=== PATIENT | female | born 1965 | race African-American/Black ===

== ENCOUNTER → 2017-08-06 | Outpatient (CLI) | payer OTHER ==
[~2017-08-06] VITALS: Ht 162.6 cm; Wt 81.6 kg
[~2017-08-06] MED LIST: ANASPAZ0.125 MG SUBLING; ANXIETY MED; CLONAZEPAM; CLONAZEPAM 1 MG1 M1 PO; CYMBALTA; CYMBALTA30 MG PO; DEXTROAMPHETAMIN5 M2 PO; ENOXAPARIN40 MG/0.4 SUBQ; FLAGYL500 MG PO; FLONASE; FLONASE 0.05%50 MCG NASAL; FOLIC ACID0.4 MG PO; HYDROCODON-ACE1 EACH PO; HYDROCODONE-AP1 EAC6 PO; IBUPROFEN 200200 M1 PO; MELOXICAM7.5 MG PO; METHOTREXATE; METHOTREXATE 22.5 MG PO; MOBIC7.5 MG PO; NORCO 5-325 TA1 EACH PO; NUVIGIL; NUVIGIL PO; OMEPRAZOLE 20 M20 M1 PO; OXYCODONE-ACET1 EACH PO; PEPCID AC20 M1 PO; POTASSIUM20 PO; PROZAC20 MG PO; RHEUMATREX2.5 MG PO; TAMSULOSIN HCL0.4 MG PO; VIT D; VITAMIN D2000 UNIT PO; VITAMIN D31000 UNI2 PO; WELLBUTRIN SR150 MG PO
--- NOTE | ~2017-08-06 | HPC ---
[facility] [address] [place] [address] PAIN MANAGEMENT CONSULTATION Name: GISELLE ANDERSON Room #: REG [facility] Indra#: [id number] Admission: 08/06/17 Attend Phys: lCaus March DO Discharge: Date of : 69 Report #: [id number] THIS REPORT FOR: //name// CC: Aleta March HISTORY OF PRESENT ILLNESS: The patient a very pleasant 52-year-old female seen in consultation at the request of Dr. Yasmani Barba for assistance with management of pain in neck, left shoulder and upper arm. The patient has paresthesia going into the middle 3 fingers. She notes symptoms are present for about 3 months. Denies specific antecedent trauma and overuse. She has tried nonsteroidal anti-inflammatory medications (ibuprofen) with some efficacy. Aspercreme and icy hot topical with some efficacy. She notes the pain is exacerbated when she is sleep, when she is recumbent and when she is in the right lateral decubitus position. She notes rhythmic, aching, gnawing, stabbing pain, rates anywhere from 6 to 9 on visual analog scale. She notes some subjective decreased left hand strength. Denies any antecedent trauma and overuse. REVIEW OF SYSTEMS: Complete review of systems attached to chart and gone over with the patient. She is and in fact I have treated her for quite some time. They are a delightful couple. She has a history of sarcoidosis that has been treated by Dr. Yasmani Barba for many years, currently on methotrexate and folic acid. History of some chronic anxiety, depression, takes Buproprion, Prozac and dextroamphetamine 5 mg four times daily. She takes rare hydrocodone for pain. She has had sinus surgery in the past, left tear duct surgery multiple times, carpal tunnel repair left wrist 2004. She has been disabled since 2004. Pain impact score is a 49/70. PHYSICAL EXAMINATION: Shows 5 feet 4, 180 pounds female, BMI is 30.9 kg per meter squared. Blood pressure is 125/78, pulse 83, respirations 16. Cranial nerves 2 through 12 are grossly intact. Pupils equal, reactive to light and accommodation. Extraocular muscles are intact. Cervical range of motion is modestly limited. Positive Lhermitte's with symptoms radiating into left side. Thyroid is modestly enlarged, no nodules are noted. Upper extremity strength shows slight decreased left triceps strength and left hand grasp with decreased opposition to the thumb and index, long and ring finger. Heart is regular rhythmical without murmur. Lungs clear to auscultation. Skin integument is intact. Abdomen is benign. Gait is tandem. Lower extremity strength is preserved. DIAGNOSTIC STUDIES: MRI of the cervical spine from 07/24/2017 notes reversal of normal cervical lordosis, circumferential annular disk bulge at C4-C5 with the right paracentral disk bulge at C5-C6 and neural foraminal narrowing. [address] [address] PAIN MANAGEMENT CONSULTATION Name: GISELLE ANDERSON Room #: REG [facility]#: [id number] Admission: 08/06/17 Attend Phys: Claus March DO Discharge: Date of : 69 Report #: [id number] ASSESSMENT: Symptomatic cervical radiculopathy clinical exam and history. RECOMMENDATION: 1. Continue nonsteroidal kyus-zyy-wwiishw anti-inflammatory agent, recommend Aleve (naproxen sodium) 220 mg twice daily. 2. cervical epidural injection under fluoroscopy today. 3. Follow up in 3 to 4 weeks to reevaluate. Thank you for allowing me to participate in this patient's care. I will keep you abreast of her progress. PROCEDURE: Cervical epidural steroid injection under fluoroscopy. PROCEDURE NOTE: After written and informed consent was obtained including risk of dural puncture, spinal cord trauma, paralysis and increased pain, the patient was taken to the fluoroscopy suite and placed in the prone position, with appropriate abdominal bolstering, neck was flexed, palms under the thighs. Skin was prepped with ChloraPrep. Sterile draping was applied. Skin wheal with 1% Xylocaine was raised. A 22-gauge 3-1/2 inch epidural Tuohy needle was placed via a midline approach at the C7-T1 interspace, advanced under biplanar fluoroscopy using continuous loss of resistance. With appropriate loss of resistance at the expected depth on lateral view, the glass loss of resistance syringe was disconnected. A low volume extension tubing was connected to the needle and a 5 mL syringe. Negative aspiration for cerebrospinal fluid or blood was noted. A 1 mL of Omnipaque was injected which showed spread within the epidural space on biplanar fluoroscopy. This was followed with 80 mg of triamcinolone plus 1 mL of 1.5% preservative Xylocaine. Needle was withdrawn to the interspinous ligament, 0.5 mL of Xylocaine was used to flush the needle. The needle was then completely withdrawn. The area was cleansed. Band-Aid was applied. The patient was allowed to move off the procedure table and ambulated to the recovery room, monitored for an appropriate period of time, discharged in good and stable condition. <ELECTRONICALLY SIGNED> By: Claus March DO 08/07/17 0731 [id number] Claus March DO /ludin
[2017-08-06 13:38] VITALS: BP 125/78
== END | disposition home or self-care (01) ==
LOC: PAIN 06:46
DX: M54.12 Radiculopathy, cervical region (principal); Z68.30 Body mass index [BMI] 30.0-30.9, adult; Z79.899 Other long term (current) drug therapy; D86.9 Sarcoidosis, unspecified; F41.9 Anxiety disorder, unspecified; F32.9 Major depressive disorder, single episode, unspecified

== ENCOUNTER → 2017-08-28 | Outpatient (CLI) | payer OTHER ==
[~2017-08-28] VITALS: Ht 162.6 cm; Wt 86.5 kg
[~2017-08-28] MED LIST changes: +NABUMETONE 750750 M1 PO
--- NOTE | ~2017-08-28 | HPC ---
[facility] [place] [address] [place] [address] PAIN MANAGEMENT CONSULTATION Name: GISELLE ANDERSON Room #: REG [facility] Indra#: [id number] Admission: 08/28/17 Attend Phys: Claus March DO Discharge: Date of : 69 Report #: [id number] THIS REPORT FOR: //name// CC: Aleta March The patient is a delightful 52-year-old female, seen for symptomatic cervical radiculopathy 08/06/2017, given 1 cervical epidural injection at that time. She had prior been seen back in 2010. She returns to pain clinic today noting greater than 60% improvement in baseline pain, though she still has some paresthesia into the neck, left shoulder and hand. She is continuing to take ybbj-jtw-pnlunlz ibuprofen about 800 mg at bedtime. PHYSICAL EXAMINATION: Shows a pleasant 52-year-old female. Cervical range of motion is modestly limited. Positive Lhermitte's going to the left arm. Upper extremity strength is generally symmetric, though slight decreased left hand grasp. Tinel's is negative. Deep tendon reflexes of the biceps, triceps, and brachioradialis are generally preserved. We reviewed diagnostic findings noting some compromise of the cervical spine in the low cervical area. ASSESSMENT: Symptomatic cervical radiculopathy in a patient has had good incremental improvement following 1 epidural injection, but still has paresthesia symptoms in the left arm. She still has positive neural tensioning symptoms. She is currently taking nonsteroidal anti-inflammatory medications. RECOMMENDATION: 1. Discontinue xtxr-rbw-tcpforn ibuprofen, we will start nabumetone 750 b.i.d. 2. I have taken the liberty of writing for low dose of hydrocodone 5/325, dispense 45 tablets as needed for pain, cautioned about daytime somnolence, mental acuity changes, and constipation. 3. Cervical epidural injection under fluoroscopy today. 4. Follow up in 4 weeks to reevaluate, cancel if doing well. PROCEDURE: Cervical epidural injection under fluoroscopy. PROCEDURE NOTE: After written and informed consent was obtained including risk of dural puncture, spinal cord trauma, paralysis and increased pain, the patient was taken to the fluoroscopy suite and placed in the prone position, with appropriate abdominal bolstering, neck was flexed, palms under the thighs. Skin was prepped with ChloraPrep. Sterile draping was applied. Skin wheal with 1% Xylocaine was raised. A 22-gauge 3-1/2 inch epidural Tuohy needle was placed via a midline approach at the C7-T1 interspace, [place] [address] PAIN MANAGEMENT CONSULTATION Name: GISELLE ANDERSON [id number] Admission: 08/28/17 Attend Phys: Claus March DO Discharge: Date of : 69 Report #: [id number] fluoroscopy using continuous loss of resistance. With appropriate loss of resistance at the expected depth on lateral view, the glass loss of resistance syringe was disconnected. A low volume extension tubing was connected to the needle and a 5 mL syringe. Negative aspiration for cerebrospinal fluid or blood was noted. A 1 mL of Omnipaque was injected which showed spread within the epidural space on biplanar fluoroscopy. This was followed with 80 mg of triamcinolone plus 1 mL of 1.5% preservative Xylocaine. Needle was withdrawn to the interspinous ligament, 0.5 mL of Xylocaine was used to flush the needle. The needle was then completely withdrawn. The area was cleansed. Band-Aid was applied. The patient was allowed to move off the procedure table and ambulated to the recovery room, monitored for an appropriate period of time, discharged in good and stable condition. <ELECTRONICALLY SIGNED> By: Claus March DO 08/31/17 0759 [id number] 1825 Claus March DO /nt
[2017-08-28 11:19] VITALS: BP 127/74
== END | disposition home or self-care (01) ==
LOC: PAIN 06:50
DX: M54.12 Radiculopathy, cervical region (principal); G89.29 Other chronic pain; Z79.891 Long term (current) use of opiate analgesic; Z98.890 Other specified postprocedural states; Z88.8 Allergy status to other drugs, medicaments and biological substances

== ENCOUNTER 2017-09-23 18:13 | Emergency (ER) | payer OTHER ==
[~2017-09-23] VITALS: Ht 160 cm; Wt 84.4 kg
[2017-09-23] MEDS ORDERED: PROMETHAZINE/C118 ML PO (19:01)
[2017-09-23] MEDS ORDERED: ZPAK PO (19:01)
== END 2017-09-23 19:05 | disposition home or self-care (01) ==
LOC: ER 18:13
DX: J18.9 Pneumonia, unspecified organism (principal); R05 Cough; D86.9 Sarcoidosis, unspecified; F32.9 Major depressive disorder, single episode, unspecified; F41.9 Anxiety disorder, unspecified; Z86.711 Personal history of pulmonary embolism; Z90.710 Acquired absence of both cervix and uterus; Z88.6 Allergy status to analgesic agent